=== PATIENT | male | born 1980 | race Caucasian/White ===

== ENCOUNTER 2017-09-16 15:07 | Emergency (ER) | payer SELFPAY ==
--- NOTE | 2017-09-16 16:37 | EDM.PDOC ---
ED HPI GENERAL MEDICAL PROBLEM - General Chief Complaint: General Stated Complaint: LEFT ANKLE INJURY Time Seen by Provider: 09/16/17 15:10 Source of Information: Reports: Patient History Limitations: Reports: No Limitations - History of Present Illness INITIAL COMMENTS - FREE TEXT/NARRATIVE: Patient is a 37-year-old gentleman who presents to the emergency department this afternoon with a complaint of left rib pain, and left ankle pain. Patient states that while working yesterday at [employer], a forklift turned over a pallet which struck him in the leg and caused him to fall to the floor. Patient states that he injured his left ribs as well as left ankle, however, did not hit head, did not lose consciousness and has no other injuries. Onset: Sudden Onset Date: 09/15/17 Duration: Day(s): Location: Reports: Chest, Lower Extremity, Left Quality: Reports: Ache Severity: Mild Improves with: Reports: None Worsens with: Reports: Movement Context: Reports: Trauma Associated Symptoms: Reports: No Other Symptoms Treatments [employer]: Reports: Cold Therapy, NSAIDS Left Ankle Pain Score (Numeric/FACES): 8 - Related Data Allergies Allergy/AdvReac Type Severity Reaction Status Date / Time No Known Drug Allergies Allergy Cannot Verified 09/16/17 15:31 Remember Home Meds: Home Meds LORazepam [Ativan] 0.5 - 1 mg PO DAILY PRN 09/16/17 [History] buPROPion HCl [Wellbutrin Sr] 150 mg PO BID 09/16/17 [History] Past Medical History Gastrointestinal History: Reports: GERD Neurological History: Reports: None Psychiatric History: Reports: Anxiety, Depression Dermatologic History: Reports: None - Infectious Disease History Infectious Disease History: Reports: Chicken Pox - Past Surgical History HEENT Surgical History: Reports: Oral Surgery Neurological Surgical History: Reports: None Social & Family History - Family History Family Medical History: Noncontributory - Tobacco Use Smoking Status *Q: Never Smoker Second Hand Smoke Exposure: No - Caffeine Use Caffeine Use: Reports: Coffee, Energy Drinks - Recreational Drug Use Recreational Drug Use: No ED ROS GENERAL - Review of Systems Review Of Systems: ROS reveals no pertinent complaints other than HPI. Constitutional: Reports: No Symptoms HEENT: Reports: No Symptoms Respiratory: Reports: Pleuritic Chest Pain Cardiovascular: Reports: No Symptoms Endocrine: Reports: No Symptoms GI/Abdominal: Reports: No Symptoms : Reports: No Symptoms Musculoskeletal: Reports: Leg Pain, Joint Pain Skin: Reports: No Symptoms Neurological: Reports: No Symptoms Psychiatric: Reports: No Symptoms Hematologic/Lymphatic: Reports: No Symptoms Immunologic: Reports: No Symptoms ED EXAM, GENERAL - Physical Exam Exam: See Below Exam Limited By: No Limitations General Appearance: Alert, WD/WN, No Apparent Distress Throat/Mouth: Normal Inspection, Normal Oropharynx, No Airway Compromise Head: Atraumatic, Normocephalic Neck: Normal Inspection, Supple, Non-Tender, Full Range of Motion Respiratory/Chest: No Respiratory Distress, Lungs Clear, Normal Breath Sounds, No Accessory Muscle Use, Other (Left axilla tenderness on rib palpation. No flail chest, no ecchymosis, no deformity noted) Cardiovascular: Normal Peripheral Pulses, Regular Rate, Rhythm, No Murmur, No Rub GI/Abdominal: Normal Bowel Sounds, Soft, Non-Tender, No Organomegaly, No Distention, No Abnormal Bruit, No Mass, Pelvis Stable Back Exam: Normal Inspection, Full Range of Motion Extremities: Leg Pain (Left lateral malleolus, mild edema, and tenderness to palpation and range of motion. No ligament laxity noted.) Neurological: Alert, Oriented, Normal Cognition Psychiatric: Normal Affect, Normal Mood Skin Exam: Warm, Dry, Intact, Normal Color, No Rash Course - Vital Signs Last Recorded V/S: Last Vital Signs Temp 98.2 F 09/16/17 15:26 Pulse 88 09/16/17 15:26 Resp 20 09/16/17 15:26 BP 151/91 H 09/16/17 15:26 Pulse Ox 99 09/16/17 15:26 - Orders/Labs/Meds Orders: Active Orders 24 hr Category Date Time Status Ankle Min 3V Lt [CR] Stat Exams 09/16/17 15:52 Ordered Ribs 2V w Chest Lt [CR] Stat Exams 09/16/17 15:52 Ordered - Radiology Interpretation Free Text/Narrative:: Ankle x-ray shows no fracture or dislocation. Chest x-ray shows no acute cardiopulmonary process or rib fractures. - Re-Assessments/Exams Free Text/Narrative Re-Assessment/Exam: 09/16/17 16:46 Patient afebrile, nontoxic appearing, vital signs stable. Shravan bandage applied to left ankle. Patient will use ice and ibuprofen for relief Departure - Departure Time of Disposition: 16:47 Disposition: Home, Self-Care 01 Condition: Good Clinical Impression: Left ankle sprain Qualifiers: Encounter type: initial encounter Involved ligament of ankle: unspecified ligament Qualified Code(s): S93.402A - Sprain of unspecified ligament of left ankle, initial encounter Contusion of rib on left side Qualifiers: Encounter type: initial encounter Qualified Code(s): S20.212A - Contusion of left front wall of thorax, initial encounter - Discharge Information Instructions: Ankle Sprain, [id number], Chest Contusion, Adult, [id number] Referrals: PCP,Not In Area [Primary Care Provider] - Additional Instructions: Follow-up with PCP. Return to emergency department sooner if symptoms continue or worsen. - My Orders Last 24 Hours: My Active Orders 09/16/17 15:52 Ankle Min 3V Lt [CR] Stat Ribs 2V w Chest Lt [CR] Stat - Assessment/Plan Last 24 Hours: My Active Orders 09/16/17 15:52 Ankle Min 3V Lt [CR] Stat Ribs 2V w Chest Lt [CR] Stat Assessment:: left ankle sprain, left rib contusion Plan: Follow-up with PCP
== END 2017-09-16 17:00 | disposition home or self-care (01) ==
LOC: KA.ED 15:07
DX: S93.402A Sprain of unspecified ligament of left ankle, initial encounter (principal); S20.212A Contusion of left front wall of thorax, initial encounter; F41.9 Anxiety disorder, unspecified; F32.9 Major depressive disorder, single episode, unspecified; Z79.899 Other long term (current) drug therapy; W22.8XXA Striking against or struck by other objects, initial encounter; Y99.0 Civilian activity done for income or pay
CPT/HCPCS: 71101-LT; 73610-LT; 99283